=== PATIENT | male | born 1965 | race Caucasian/White ===

== ENCOUNTER → 2017-08-24 | Outpatient (CLI) | payer OTHER ==
[~2017-08-24] VITALS: Ht 180.3 cm; Wt 102.5 kg
[~2017-08-24] MED LIST: AVAPRO75 MG PO; CELEXA20 MG PO; LEVOTHYROXINE125 MCG PO; MEDROL4 MG PO; MOBIC15 MG PO; SUPREP BOWEL P354 ML PO; TOPROL XL25 MG PO; ZANAFLEX4 M1 PO
== END | disposition home or self-care (01) ==
LOC: AMB 10:00
PROC: 0DBM8ZX Excision of Descending Colon, Via Natural or Artificial Opening Endoscopic, Diagnostic (ICD-10-PCS; principal; 2017-08-24)
DX: Z12.11 Encounter for screening for malignant neoplasm of colon (principal); D12.4 Benign neoplasm of descending colon; K57.30 Diverticulosis of large intestine without perforation or abscess without bleeding; I10 Essential (primary) hypertension; F41.1 Generalized anxiety disorder; E03.9 Hypothyroidism, unspecified; E66.9 Obesity, unspecified; Z68.31 Body mass index [BMI] 31.0-31.9, adult; G47.33 Obstructive sleep apnea (adult) (pediatric); Z88.4 Allergy status to anesthetic agent
CPT/HCPCS: 88305; 93005; J2250